=== PATIENT | male | born 1980 | race African-American/Black ===

== ENCOUNTER 2017-01-16 22:54 | Emergency (ER) | payer SELFPAY ==
[~2017-01-16] VITALS: Ht 182.9 cm; Wt 140.8 kg
[2017-01-16 22:56] VITALS: BP 140/91
[2017-01-16] MEDS ORDERED: ALBUTEROL/IPRATROPIUM 2.5MG/0.5MG, 3 ML NPPB SCH (23:30)
[2017-01-16] MEDS ORDERED: ALBUTEROL/IPRATROPIUM 2.5MG/0.5MG, 3 ML ONE ×2 (23:35→23:44)
== END 2017-01-17 00:20 | disposition home or self-care (01) ==
LOC: ED 01-17 00:14
DX: J45.41 Moderate persistent asthma with (acute) exacerbation (principal); J20.9 Acute bronchitis, unspecified
CPT/HCPCS: 94640; 99283; J7512; J7620